=== PATIENT | male | born 1990 | race Caucasian/White ===

== ENCOUNTER 2017-02-20 12:24 | Emergency (ER) | payer SELFPAY ==
[~2017-02-20] VITALS: Ht 172.7 cm; Wt 77.1 kg
[2017-02-20 12:24] VITALS: BP 139/82
[~2017-02-20 12:24] MED LIST: UNOBMED
[2017-02-20 13:09] LABS: BASOPHILS % (AUTO) 0.8 % (0.0-2.0); EOSINOPHILS % (AUTO) 0.2 % (0.0-3.0); LYMPHOCYTES % (AUTO) 18.8 % (20.0-45.0); MEAN CORPUSCULAR HEMOGLOBIN 30.6 PG (27.0-31.0); MEAN CORPUSCULAR HGB CONC 33.1 G/DL (32.0-36.0); MEAN CORPUSCULAR VOLUME 93 FL (80-99); MONOCYTES % (AUTO) 5.8 % (1.0-10.0); NEUTROPHILS % (AUTO) 74.5 % (45.0-75.0); PLATELET COUNT 292 K/UL (150-450); RED BLOOD COUNT 4.94 M/UL (4.70-6.10); WHITE BLOOD COUNT 9.4 K/UL (4.8-10.8)
[2017-02-20 13:21] LABS: ACETAMINOPHEN < 10 ug/mL (10-30); ALANINE AMINOTRANSFERASE 23 U/L (3-41); ALBUMIN/GLOBULIN RATIO 1.3 (1.0-2.7); ALCOHOL < 10 mg/dL; ANION GAP 17 (5-15); ASPARTATE AMINO TRANSFERASE 33 U/L (5-40); CALCIUM 9.4 mg/dL (8.6-10.2); CARBON DIOXIDE 27 mEQ/L (20-30); CHLORIDE 95 mEQ/L (98-107); CREATININE 0.8 mg/dL (0.7-1.2); GLOMERULAR FILTRATION RATE > 60 mL/min (>60); HEMOLYSIS 5; POTASSIUM 3.5 mEQ/L (3.4-4.9); SODIUM 139 mEQ/L (135-145); TOTAL PROTEIN 8.4 g/dL (6.6-8.7)
[2017-02-20 14:30] VITALS: BP 139/82
--- NOTE | 2017-02-20 14:32 | Emergency Room Report ---
History of Present Illness General Chief Complaint: General Complaint Source: Patient Present Illness HPI 26-year-old male presents emergency department requesting evaluation for possible rat poisoning. Patient also states that he ran out of his psychiatric medication for which she states is cannabis pills. Patient is a poor historian and has multiple cancers to triage questions. Patient reports history of detox from marijuana patient states he has been living in detox facility and believes that he was given rat poison. Patient denies symptoms he denies easy bruising, bleeding, nausea, vomiting, fevers, chills, abdominal pain. When asked if patient has psychiatric history he replies with "I do not have a history of paranoid schizophrenia." Patient denies SI or HI. Denies drug use other than marijuana . Denies taking medications other than "marijuana pills" Denies CP, Palpitations, LOC, AMS, dizziness, Changes in Vision, Sensation, paresthesias, or a sudden severe headache. Allergies: Coded Allergies: No Known Allergies (Unverified , 02/20/17) Patient History Past Medical History: see triage record Past Surgical History: none Pertinent Family History: none Immunizations: UTD Reviewed Nursing Documentation: PMH: Agreed, PSxH: Agreed Nursing Documentation-PMH History Of Psychiatric Problem: Yes - bipolar, schizoprenia Review of Systems All Other Systems: negative except mentioned in HPI Physical Exam Vital Signs Date Time Temp Pulse Resp B/P Pulse Ox O2 Delivery O2 Flow Rate FiO2 02/20/17 12:17 98.4 114 16 139/82 99 Room Air Sp02 EP Interpretation: reviewed, normal General Appearance: no apparent distress, alert, GCS 15, non-toxic, other - Pt appears to have been walking around barefoot, due to soild soles, no shoes, no lesions/lacerations noted. Head: normocephalic, atraumatic Eyes: bilateral eye PERRL, bilateral eye normal inspection ENT: hearing grossly normal, normal pharynx, no angioedema, normal voice Neck: full range of motion, supple/symm/no masses Respiratory: chest non-tender, lungs clear, normal breath sounds, speaking full sentences Cardiovascular #1: regular rate, rhythm, no edema Gastrointestinal: normal bowel sounds, non tender, soft, no guarding, no rebound Rectal: deferred Musculoskeletal: back normal, gait/station normal, normal range of motion, non- tender Neurologic: alert, oriented x3, responsive, motor strength/tone normal, sensory intact, cerebellar normal, normal gait, speech normal Psychiatric: judgement/insight normal, memory normal - poor historian regarding medications, and recent detox facility treatment. , mood/affect normal , no suicidal/homicidal ideation, other - Pt has paranoid ideations, and has intermittent inappropriate reaction to conversation ( giggling ) pt. occasionally will yell obsurities, but answer questions appropriately. Skin: normal color, no rash, warm/dry, well hydrated, other - Pt appears to have been walking around barefoot, due to soild soles, no shoes, no lesions/ lacerations noted. Medical Decision Making PA Attestation Dr. Brennan is my supervising Physician whom patient management has been discussed with. Diagnostic Impression: Primary Impression: Encounter for generalized patient complaints Additional Impression: Encounter for medical screening examination ER Course 26-year-old male presents emergency department requesting evaluation for possible rat poisoning. Patient also states that he ran out of his psychiatric medication for which she states is cannabis pills. Patient is a poor historian and has multiple cancers to triage questions. Patient reports history of detox from marijuana patient states he has been living in detox facility and believes that he was given rat poison. Patient denies symptoms he denies easy bruising, bleeding, nausea, vomiting, fevers, chills, abdominal pain. When asked if patient has psychiatric history he replies with "I do not have a history of paranoid schizophrenia." Patient denies SI or HI. Denies drug use other than marijuana . Denies taking medications other than "marijuana pills" Denies CP, Palpitations, LOC, AMS, dizziness, Changes in Vision, Sensation, paresthesias, or a sudden severe headache. Pt is hyperactive, and has a very anxious and restless affect. Ddx considered but are not limited to OD, SI/HI, psychosis, UTI, intoxication Vital signs: are WNL, pt. is afebrile H&PE are most consistent with behavioral/mental health issue ORDERS: -PT/PTT: WNL/unremarkable -UA: negative for infection see results attached. -UDS: positive for Benzo -Psych panel ordered: see results attached - no acute intoxication. ED INTERVENTIONS: - Psychiatric evaluation- Pt. declines, pt. requests to leave. DISPOSITION: Both Dr. Brennan and myself have spoken with patient and expressed the importance of psychiatric evaluation, patient declines and states that he wants to be discharged home. Pt. makes multiple attempts to leave the department. Patient is alert and oriented and he denies suicidal ideations or homicidal ideations. Pt. does not have acute violent history, therefore Hospital security will not restrain pt., or ensure that he awaits psychiatric evaluation. Providers and medical staff are unable to physically restrain this pt for safety reasons. This pt. is not exhibiting violent or aggressive behavior to warrant pharmacological restraint. At this time pt. will be signing AMA as he is declining psychiatric evaluation. Pt is given [facility] INFORMATION with his copy of the AMA and d/c paperwork. Last Vital Signs Date Time Temp Pulse Resp B/P Pulse Ox O2 Delivery O2 Flow Rate FiO2 02/20/17 12:24 98.4 114 16 139/82 99 Room Air Disposition: AGAINST MEDICAL ADVICE Condition: Stable Referrals: NOT CHOSEN IPA/MD,REFERRING (PCP) Additional Instructions: Take any previously prescribed medications as directed. Follow up with PCP in 48 Hours FOLLOW UP AT [facility] Return sooner to ED if new symptoms occur, or current symptoms become worse. - Please note that this Emergency Department Report was dictated using [employer] exchange manager technology software, occasionally this can lead to erroneous entry secondary to interpretation by the dictation equipment. Sondra Collado Feb 20, 2017 14:32
== END 2017-02-20 14:30 | disposition left against medical advice (07) ==
LOC: EDBD 12:24 → EMR 12:56
DX: Z13.9 Encounter for screening, unspecified (principal); F12.90 Cannabis use, unspecified, uncomplicated; Z86.59 Personal history of other mental and behavioral disorders; F22 Delusional disorders
CPT/HCPCS: 36415; 80053; 80300; 85025; 85610; 85730; 99283; G0480; 80329

== ENCOUNTER 2020-03-27 17:51 | Emergency (ER) | payer MEDICARE, MEDICAID ==
[~2020-03-27] VITALS: Ht 185.4 cm; Wt 136.1 kg
--- NOTE | 2020-03-27 18:15 | NUR ---
ED Nurse Note: Shane Johnson ( pool manager of [facility]) [phone]
--- NOTE | 2020-03-27 18:38 | Emergency Room Report ---
History of Present Illness General Chief Complaint: Behavioral Complaint Source: Patient (Sondra Collado) Present Illness HPI 29 YO male presents to the ED c/o being kicked out of his psychiatric living facility for smoking marijuana. Pt. reports having paranoia. Pt. denies SI or HI. He was last hospitalized 3 months ago. Denies fevers, chills, cough, recent illness or drug use besides marijuana. He denies pain. He denies open wounds, bleeding or skin infections. He denies mabel. He reports taking Abilify and states he has been compliant with medications. Pt. is not very talkative and provides little to no details. (Sondra Collado) Allergies: Coded Allergies: No Known Allergies (Unverified , 02/20/17) COVID-19 Screening Contact w/high risk pt: No Experienced COVID-19 symptoms?: No COVID-19 Testing performed [facility]AR [employer]: No (Sondra Collado) Patient History Past Medical History: see triage record Past Surgical History: none Pertinent Family History: none Reviewed Nursing Documentation: PMH: Agreed; PSxH: Agreed (Sondra Collado) Nursing Documentation-PMH Past Medical History: No Stated History (Sondra Collado) Review of Systems All Other Systems: negative except mentioned in HPI (Sondra Collado) Physical Exam Vital Signs Date Time Temp Pulse Resp B/P (MAP) Pulse Ox O2 Delivery O2 Flow Rate FiO2 03/27/20 18:04 98.2 102 18 118/65 (82) 98 Room Air Sp02 EP Interpretation: reviewed, normal General Appearance: no apparent distress, alert, GCS 15, non-toxic Head: normocephalic, atraumatic Eyes: bilateral eye normal inspection, bilateral eye PERRL ENT: hearing grossly normal, normal voice Neck: full range of motion Respiratory: chest non-tender, lungs clear, normal breath sounds, no wheezing, speaking full sentences Cardiovascular #1: regular rate, rhythm, normal capillary refill Gastrointestinal: normal bowel sounds, non tender, soft Rectal: deferred Genitourinary: normal inspection Musculoskeletal: back normal, normal range of motion, gait/station normal, non- tender Neurologic: alert, motor strength/tone normal, oriented x3, sensory intact, responsive, speech normal Psychiatric: judgement/insight normal Skin: normal color Lymphatic: no adenopathy (Sondra Collado) Medical Decision Making PA Attestation Dr. Botello Is my supervising Physician whom patient management has been discussed with. (Sondra Collado) Diagnostic Impression: Primary Impression: Behavioral disorder Additional Impression: Schizophrenia Qualified Codes: F20.9 - Schizophrenia, unspecified ER Course 29 YO male presents to the ED c/o being kicked out of his psychiatric living facility for smoking marijuana. Pt. reports having paranoia. Pt. denies SI or HI. He was last hospitalized 3 months ago. Denies fevers, chills, cough, recent illness or drug use besides marijuana. He denies pain. He denies open wounds, bleeding or skin infections. He denies mabel. He reports taking Abilify and states he has been compliant with medications. Pt. is not very talkative and provides little to no details. Ddx considered but are not limited to OD, SI/HI, psychosis, UTI, intoxication, medication non-compliance Vital signs: are WNL, pt. is afebrile H&PE are most consistent with behavioral/mental health issue ORDERS: -CBC, CMP: WNL -UA: negative for infection see results attached. -UDS: -Salicylates and Acetaminophen - no acute intoxication. ED INTERVENTIONS: - DISPOSITION: Pending psychiatric placement (Sondra Collado) ER Course Reevaluation 9:18 PM, patient states he no longer wants to be admitted no SI HI , no evidence of grave disability patient states he is going take his Abilify at home and will follow-up with psychiatrist No indications for acute hold disposition home with return precautions follow- up with PCP Laboratory Tests Test 03/27/20 18:48 White Blood Count 12.2 K/UL (4.8-10.8) H Red Blood Count 5.25 M/UL (4.70-6.10) Hemoglobin 15.6 G/DL (14.2-18.0) Hematocrit 46.1 % (42.0-52.0) Mean Corpuscular Volume 88 FL (80-99) Mean Corpuscular Hemoglobin 29.7 PG (27.0-31.0) Mean Corpuscular Hemoglobin Concent 33.8 G/DL (32.0-36.0) Red Cell Distribution Width 13.3 % (11.6-14.8) Platelet Count 249 K/UL (150-450) Mean Platelet Volume 7.6 FL (6.5-10.1) Neutrophils (%) (Auto) 71.7 % (45.0-75.0) Lymphocytes (%) (Auto) 22.8 % (20.0-45.0) Monocytes (%) (Auto) 4.0 % (1.0-10.0) Eosinophils (%) (Auto) 0.7 % (0.0-3.0) Basophils (%) (Auto) 0.9 % (0.0-2.0) Sodium Level 139 MMOL/L (136-145) Potassium Level 4.0 MMOL/L (3.5-5.1) Chloride Level 102 MMOL/L (98-107) Carbon Dioxide Level 29 MMOL/L (21-32) Anion Gap 8 mmol/L (5-15) Blood Urea Nitrogen 13 mg/dL (7-18) Creatinine 1.0 MG/DL (0.55-1.30) Estimated Glomerular Filtration Rate > 60 mL/min (>60) Glucose Level 97 MG/DL (74-106) Calcium Level 9.3 MG/DL (8.5-10.1) Total Bilirubin 0.2 MG/DL (0.2-1.0) Aspartate Amino Transferase (AST) 33 U/L (15-37) Alanine Aminotransferase (ALT) 64 U/L (12-78) Alkaline Phosphatase 92 U/L (46-116) Total Protein 8.3 G/DL (6.4-8.2) H Albumin 4.1 G/DL (3.4-5.0) Globulin 4.2 g/dL Albumin/Globulin Ratio 1.0 (1.0-2.7) Salicylates Level 2.2 ug/mL (2.8-20) L Urine Opiates Screen Negative (NEGATIVE) Acetaminophen Level < 2 MCG/ML (10-30) L Urine Barbiturates Screen Negative (NEGATIVE) Phencyclidine (PCP) Screen Negative (NEGATIVE) Urine Amphetamines Screen Negative (NEGATIVE) Urine Benzodiazepines Screen Negative (NEGATIVE) Urine Cocaine Screen Negative (NEGATIVE) Urine Marijuana (THC) Screen Negative (NEGATIVE) Serum Alcohol < 3 mg/dL Microbiology Date/Time Source Procedure Growth Status 03/27/20 20:00 Nasopharynx SARS-CoV-2 RdRp Gene Assay - Final Complete (Dillon Botello MD) Last Vital Signs Date Time Temp Pulse Resp B/P (MAP) Pulse Ox O2 Delivery O2 Flow Rate FiO2 03/27/20 18:04 98.2 102 18 118/65 (82) 98 Room Air (Sondra Collado) Disposition: HOME, SELF-CARE Condition: Stable Referrals: [facility]. [facility] Patient Instructions: Schizophrenia Additional Instructions: The patient was provided with discharge instructions, notified to follow-up with a primary care doctor and or specialist in the next 24-48 hours, and to return to the ED if they have worsening of their symptoms. Please note that this report is being documented using [employer] technology. This can lead to erroneous entry secondary to incorrect interpretation by the dictating instrument. Sondra Collado Mar 27, 2020 18:38 Dillon Botello MD Mar 27, 2020 21:19
[2020-03-27 18:55] VITALS: BP 118/65
--- NOTE | 2020-03-27 18:58 | NUR ---
ED Nurse Note:pt. [facility] from [facility] for [facility] for violation of their rools and smoking THC, pt. is A/Ox4 ambulatory, no agitation ot anxiety ,no SI/HI present, no hearing voices. His personal belongings placed in locker #3, blood and urine sent to labs, food provided
--- NOTE | 2020-03-27 19:09 | NUR ---
HAND-OFF: Report given to Vladislav Pope [].
--- NOTE | 2020-03-27 19:15 | NUR ---
ED Nurse Note: received report from Elyssa STEINER. Pt calm and resting in bed.
[2020-03-27 19:31] LABS: BASOPHILS % (AUTO) 0.9 % (0.0-2.0); EOSINOPHILS % (AUTO) 0.7 % (0.0-3.0); HEMATOCRIT 46.1 % (42.0-52.0); HEMOGLOBIN 15.6 G/DL (14.2-18.0); LYMPHOCYTES % (AUTO) 22.8 % (20.0-45.0); MEAN CORPUSCULAR VOLUME 88 FL (80-99); NEUTROPHILS % (AUTO) 71.7 % (45.0-75.0); PLATELET COUNT 249 K/UL (150-450); RED BLOOD COUNT 5.25 M/UL (4.70-6.10); RED CELL DISTRIBUTION WIDTH 13.3 % (11.6-14.8); WHITE BLOOD COUNT 12.2 K/UL (4.8-10.8)
[2020-03-27 19:34] LABS: ANION GAP 8 mmol/L (5-15); BLOOD UREA NITROGEN 13 mg/dL (7-18); CALCIUM 9.3 MG/DL (8.5-10.1); CARBON DIOXIDE 29 MMOL/L (21-32); CHLORIDE 102 MMOL/L (98-107); SODIUM 139 MMOL/L (136-145)
[2020-03-27 19:40] LABS: ALANINE AMINOTRANSFERASE 64 U/L (12-78); ALBUMIN 4.1 G/DL (3.4-5.0); ALKALINE PHOSPHATASE 92 U/L (46-116); ASPARTATE AMINO TRANSFERASE 33 U/L (15-37); BILIRUBIN,TOTAL 0.2 MG/DL (0.2-1.0)
[2020-03-27 20:56] VITALS: BP 131/66
--- NOTE | 2020-03-27 21:19 | NUR ---
ED Nurse Note: PT STATES HE WISHES TO LEAVE AND DOES NOT WANT TO BE ON VOLUNTARY HOLD. ERMD AT BEDSIDE.
[2020-03-27 21:25] VITALS: BP 131/66
--- NOTE | 2020-03-27 21:25 | NUR ---
ER DISCHARGE NOTE: Patient is cleared to be discharged per ERMD, pt is aox4, on room air, with stable vital signs. pt was given dc instructions, pt was able to verbalize understanding, pt id band removed without complications. pt is able to ambulate with steady gait. pt took all belongings. Pt given psych referal paper
== END 2020-03-27 21:25 | disposition home or self-care (01) ==
LOC: EMR 18:30
DX: F91.9 Conduct disorder, unspecified (principal); F20.9 Schizophrenia, unspecified; F12.90 Cannabis use, unspecified, uncomplicated
CPT/HCPCS: 36415; 80053; 80307; 85025; 99283; G0480; U0002